=== PATIENT | female | born 1995 | race Two or more races ===

== ENCOUNTER 2017-11-20 15:42 | Emergency (ER) | payer OTHER ==
[2017-11-20 16:01] VITALS: RESP 16
[2017-11-20] MEDS ORDERED: IBUPROFEN 600 MG TAB PO ONE (18:22)
--- NOTE | 2017-11-20 18:26 | EDPHY ---
H & P Time Seen by Provider: 11/20/17 17:37 HPI/ROS: CHIEF COMPLAINT: Abdominal pain HISTORY OF PRESENT ILLNESS: 22-year-old female presents to the emergency department with lower abdominal pain associated with her menstrual cycle. Her period started yesterday which was normal and on time. She typically has pain associated with menstrual cramps. She has not saturated a pad within an hour. She last took ibuprofen at 1 o'clock this morning, over 15 hr ago. She does not feel lightheaded or dizzy. She denies chest pain or difficulty breathing. Denies back pain. She is not sexually active. She denies . Normal bowel movement today. Denies dysuria, urgency or frequency with urination. REVIEW OF SYSTEMS: Constitutional: No fever, no chills. Eyes: No double or blurry vision. ENT: No sore throat. Respiratory: No cough, no shortness of breath. Cardiac: No chest pain. Gastrointestinal: Abdominal pain as above. No vomiting or diarrhea. Genitourinary: No dysuria. Musculoskeletal: No neck or back pain. Skin: No rashes. Neurological: No headache. Past Medical/Surgical History: Negative Social History: Single Smoking Status: Never smoked Physical Exam: General Appearance: Alert, no distress. Vital signs are stable. Upon my initial examination the patient is sleeping but easily arousable. Eyes: Pupils equal and round. Extraocular motions are all intact. ENT: Mouth: Mucous membranes moist. Respiratory: No wheezing, rhonchi, or rales, lungs are clear to auscultation. Cardiovascular: Regular rate and rhythm. Gastrointestinal: Abdomen is soft. She has mild tenderness with palpation in her right and her left lower quadrant. There is no rebound, guarding or masses noted. No CVA tenderness bilaterally. Neurological: Alert and oriented x 3, cranial nerves II through XII grossly intact Skin: Warm and dry, no rashes. Musculoskeletal: Nontender to palpate along the cervical, thoracic or lumbar spine. Neck is supple. Extremities: Full range of motion and no peripheral edema. Psychiatric: Patient is oriented X 3, there is no agitation. Constitutional: Initial Vital Signs Temperature (C) 36.9 C 11/20/17 15:58 Heart Rate 98 11/20/17 15:58 Respiratory Rate 16 11/20/17 15:58 Blood Pressure 145/83 H 11/20/17 15:58 O2 Sat (%) 98 11/20/17 15:58 O2 Delivery Mode Room Air Allergies/Adverse Reactions: No Known Drug Allergies Allergy (Verified 11/20/17 16:01) Medical Decision Making ED Course/Re-evaluation: 22-year-old female presents to the emergency department with dysmenorrhea. The patient has a history of dysmenorrhea. She has not taken any ibuprofen in over 15 hr. She is not sexually active. She denies . The patient was given 600 mg of ibuprofen p.o. In the emergency department. Patient was feeling much better upon discharge. I offered ultrasound laboratory studies in the patient declined. I think this is reasonable. She was given OBGYN that she can follow up with. I did also encouraged her to start ibuprofen 2 days prior to the onset of her menses to see if this may help with some of her dysmenorrhea. Differential Diagnosis: Including but not limited to dysmenorrhea, menorrhagia, , ovarian cyst , ovarian torsion, endometriosis, urinary tract infection, pyelonephritis, acute appendicitis - Data Points Medications Given: Discontinued Medications Ibuprofen (Motrin) 600 mg PO EDNOW ONE Stop: 11/20/17 18:23 Last Admin: 11/20/17 18:29 Dose: 600 mg Departure - Departure Disposition: Home, Routine, Self-Care Clinical Impression: Dysmenorrhea Condition: Good Instructions: Dysmenorrhea (ED) Additional Instructions: Ibuprofen 600 mg every 8 hr as needed for pain. If you have a history of painful periods, you may also try taking ibuprofen 600 mg every 8 hr 2 days prior to the onset of your menstrual cycle and this may help with your menstrual cramps. Return to the emergency department if you develop heavy menstrual bleeding where you saturate a pad within 1 hr. Return if you feel lightheaded, increasing or change in your abdominal pain, or if you feel worse in any way. Referrals: Judith Lozano MD [Medical Doctor] - As per Instructions (OBGYN on-call) Stand Alone Forms: School Excuse
[2017-11-20 19:12] VITALS: BP 117/67; PULSE 76; TEMP 97.7; O2SAT 95
== END 2017-11-20 19:12 | disposition home or self-care (01) ==
DX: N94.6 Dysmenorrhea, unspecified (principal)

== ENCOUNTER 2018-06-11 15:34 | Emergency (ER) | payer OTHER ==
--- NOTE | 2018-06-11 16:06 | EDPHY ---
HPI/HX/ROS/PE/MDM Narrative: CHIEF COMPLAINT: Cough HPI: The patient is a 23 y/o female complaining of productive cough and congestion for the last week. She went to urgent care shortly after symptoms began and was told it "wasn't anything bad" and was discharged without medications and advised to follow supportive OTC care. She has used some Tylenol for symptoms, but continues to have a cough so she came to the ED today. She describes white phlegm occasionally. No fever, vomiting, abdominal pain, diarrhea, or other complaints. REVIEW OF SYSTEMS: A comprehensive 10 system review of systems is otherwise negative aside from elements mentioned in the history of present illness. PMH: Hypothyroidism SOCIAL HISTORY: [employer] student. No PCP PHYSICAL EXAM: General:Patient is alert, in no acute distress. ENT:Eyes are normal to inspection. ENT inspection normal. Neck: Normal inspection. Full range of motion. Respiratory:No respiratory distress. Breath sounds normal bilaterally. Cardiovascular: Regular rate and rhythm. Strong peripheral pulses. Normal cap refill. Abdomen:The abdomen is nontender to palpation. There are no peritoneal signs. Back: Normal to inspection. No tenderness to palpation. Skin: Normal color. No rash. Warm and dry. Extremities: Normal appearance. Full range of motion. Neuro: Oriented x3. Normal motor function. Normal sensory function. ED Course: This is a normally healthy 23 y/o female complaining of a persistent cough over the last week. Exam is unremarkable. Plan for chest x-ray. Chest x-ray: suggestive of bronchitis. Reassessed patient and discussed findings. She will be discharged with scripts for albuterol and prednisone with referral to PCP for follow up. Standard care instructions and return precautions discussed. She is comfortable with this plan. - Data Points Imaging Results: Imaging Impressions Chest X-Ray 06/11/18 16:05 Impression: Prominence of perihilar interstitial markings and peribronchial cuffing. Findings are nonspecific but can be seen with bronchitis, reactive airway disease, or viral process. Imaging: I viewed and interpreted images myself General Time Seen by Provider: 06/11/18 16:00 Initial Vital Signs: Initial Vital Signs Temperature (C) 36.6 C 06/11/18 15:42 Heart Rate 73 06/11/18 15:42 Respiratory Rate 18 06/11/18 15:42 Blood Pressure 113/95 H 06/11/18 15:42 O2 Sat (%) 95 06/11/18 15:42 O2 Delivery Mode Room Air Allergies/Adverse Reactions: No Known Drug Allergies Allergy (Verified 06/11/18 15:41) Home Medications: Medication Instructions Recorded Albuterol [Proventil Inhaler HFA 1 - 2 puffs IH Q4PRN PRN #1 mdi 06/11/18 (*)] Synthroid 06/11/18 predniSONE 40 mg PO DAILY 5 Days tab 06/11/18 Departure - Departure Disposition: Home, Routine, Self-Care Clinical Impression: Acute bronchitis Qualifiers: Bronchitis organism: unspecified organism Qualified Code(s): J20.9 - Acute bronchitis, unspecified Condition: Good Instructions: Albuterol (By breathing), Prednisone (By mouth), Acute Bronchitis (ED) Additional Instructions: 1. Take prednisone as directed. Be sure to complete the entire prescription. 2. Use albuterol inhaler as directed for cough and shortness of breath. 3. Follow up with your primary care provider next week for continued symptoms. Adult Pain & Fever Control: We recommend Acetaminophen (Tylenol) and Ibuprofen (Motrin,Advil) for pain and fever control. When fever is high or pain severe, both drugs can be used at the same time, but at different intervals. Please note the time differences. Your dose is: Acetaminophen 650mg every 4 to 6 hours Ibuprofen 600mg every 8 hours with food Note: do not take Acetaminophen with Hydrocodone (Vicodin, Lortab) or Oxycodone (Percocet). These medications also contain Acetaminophen. No more than 3000mg of Acetaminophen should be taken in 24 hours (for an adult). Referrals: [facility] [Clinic] - As per Instructions Donald Horner DO [Doctor of Osteopathy] - As per Instructions Prescriptions: Albuterol [Proventil Inhaler HFA (*)] 1 - 2 puffs IH Q4PRN PRN #1 mdi PRN Reason: Sob/Dyspnea predniSONE 40 mg PO DAILY 5 Days tab Report Scribed for: Sean Bennett Report Scribed by: Anastasiya Quintero Date of Report: 06/11/18 Time of Report: 16:06 Physician Review and Approval Statement: Portions of this note were transcribed by an ED scribe. I personally performed the history, physical exam, and medical decision making; and confirm the accuracy of the information in the transcribed note.
[2018-06-11 16:55] VITALS: BP 115/74
== END 2018-06-11 16:56 | disposition home or self-care (01) ==
DX: J20.9 Acute bronchitis, unspecified (principal)